=== PATIENT | male | born 1970 ===

== ENCOUNTER 2025-03-02 18:15 | Emergency (ER) | payer OTHER ==
[~2025-03-02] VITALS: Ht 177.8 cm; Wt 81.8 kg
[2025-03-02 18:37] VITALS: TEMP 98
[2025-03-02 19:32] VITALS: BP 115/76; PULSE 65; RESP 18; O2SAT 94
== END 2025-03-02 20:18 | disposition home or self-care (01) ==
LOC: EMS 18:15
DX: E11.65 Type 2 diabetes mellitus with hyperglycemia (principal); I10 Essential (primary) hypertension; E78.00 Pure hypercholesterolemia, unspecified; Z79.84 Long term (current) use of oral hypoglycemic drugs
CPT/HCPCS: 82962; 99283